=== PATIENT | male | born 1985 | race Two or more races ===

== ENCOUNTER 2017-12-29 13:40 | Emergency (ER) | payer OTHER ==
[~2017-12-29] VITALS: Ht 167.6 cm; Wt 81.6 kg
[2017-12-29 14:03] VITALS: BP 136/66
[2017-12-29] MEDS ORDERED: LIDOCAINE /MPF 1% VIAL 5 ML VIAL ONE (14:57)
[2017-12-29] MEDS ORDERED: CEFTRIAXONE 500 MG VIAL ONE (14:57)
[2017-12-29] MEDS ORDERED: AZITHROMYCIN 250 MG TABLET PO ONE (15:00)
[2017-12-29] MEDS ORDERED: CEFTRIAXONE 1 G VIAL IM ONE (15:00)
[2017-12-29] MEDS ORDERED: AZITHROMYCIN 250 MG TABLET ONE (15:15)
[2017-12-29 15:39] LABS: APPEARANCE,URINE SL CLOUDY (CLEAR); BILIRUBIN,URINE NEGATIVE (NEGATIVE); BLOOD, URINE NEGATIVE Ery/uL (NEGATIVE); COLOR,URINE YELLOW (YELLOW); KETONES,URINE NEGATIVE (NEGATIVE); LEUKOCYTE ESTERASE ,URINE 3+ (NEGATIVE); NITRITE, URINE NEGATIVE (NEGATIVE); PROTEIN,URINE NEGATIVE (NEGATIVE); UGLUCOSE NEGATIVE (NEGATIVE); UROBILINOGEN,URINE 0.2 EU/dL (0.2)
[2017-12-29 15:49] LABS: RBC,URINE 0-2 /HPF (0-2)
[2017-12-29 15:50] LABS: BACTERIA,URINE Few /HPF (None Seen); SQUAMOUS EPITHELIAL CELL,UR Rare /HPF (None Seen); WBC,URINE 21-50 /HPF (0-3)
== END 2017-12-29 15:56 | disposition home or self-care (01) ==
LOC: ER 13:43
DX: R30.0 Dysuria (principal); F10.10 Alcohol abuse, uncomplicated; F17.200 Nicotine dependence, unspecified, uncomplicated; Y90.9 Presence of alcohol in blood, level not specified
CPT/HCPCS: 81000-TC; 87086-TC; 87491; 87591; A4606; J0696; J3490; Z7610

== ENCOUNTER 2018-06-16 12:52 | Emergency (ER) | payer OTHER ==
[~2018-06-16] VITALS: Ht 160 cm; Wt 74.8 kg
--- NOTE | 2018-06-16 13:12 | NUR ---
LT WRIST PAIN X 1HR. ARM IS RED AND SLIGHTLY SWOLLEN, ONE SMALL ABRASION ON MEDIAL SIDE. SUPPORTING ARM PT IS AOX4, AMB, VSS, RR EVEN AND UNLABORED. NO ACUTE DISTRESS NOTED. DENIES SOB, DIZZINESS, WEAKNESS, N/V. SKIN WARM AND DRY. READY FOR EVAL.
[2018-06-16] MEDS ORDERED: KETOROLAC TROMETHAMINE INJ 30 MG/ML VIAL IV ONE (15:00)
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
--- NOTE | 2018-06-16 15:04 | NUR ---
CALLED [employer] NON EMERGENCY DISPATCH , THEY WILL BE SENDING A UNIT OVER.
[2018-06-16] MEDS ORDERED: KETOROLAC TROMETHAMINE 15 MG/ML VIAL ONE (15:05)
--- NOTE | 2018-06-16 15:11 | NUR ---
Patient discharged to home in stable condition. Written and verbal after care instructions given. Patient verbalizes understanding of instruction. Addendum: 06/16/18 at 1537 by OCTAVIO DISCHARGED TO WAITING ROOM TO WAIT FOR [employer]
--- NOTE | 2018-06-16 15:34 | NUR ---
[employer] UNIT [id number] RESPONDED, HOWEVER PT LEFT BEFORE THEY COULD OBTAIN THE REPORT.
[2018-06-16 15:50] VITALS: BP 111/76
== END 2018-06-16 15:01 | disposition home or self-care (01) ==
LOC: ER 12:54
DX: S50.812A Abrasion of left forearm, initial encounter (principal); R56.9 Unspecified convulsions; F10.10 Alcohol abuse, uncomplicated; F17.200 Nicotine dependence, unspecified, uncomplicated; Y90.9 Presence of alcohol in blood, level not specified; Z87.448 Personal history of other diseases of urinary system; Y08.89XA Assault by other specified means, initial encounter; Y93.89 Activity, other specified; Y92.89 Other specified places as the place of occurrence of the external cause; Y99.8 Other external cause status
CPT/HCPCS: 73110; 96372; 99283; A4606; J1885; Z7610

== ENCOUNTER 2018-06-25 18:52 | Emergency (ER) | payer MEDICAID, OTHER ==
[~2018-06-25] VITALS: Ht 162.6 cm; Wt 75.7 kg
[2018-06-25 19:08] VITALS: BP 123/75
--- NOTE | 2018-06-25 19:45 | NUR ---
HOMELESS WAIVER SIGNED AND RESOURCES PROVIDED
== END 2018-06-25 19:51 | disposition home or self-care (01) ==
LOC: ER 18:52
DX: F10.20 Alcohol dependence, uncomplicated (principal); F17.200 Nicotine dependence, unspecified, uncomplicated; R56.9 Unspecified convulsions; Y90.9 Presence of alcohol in blood, level not specified; Z71.41 Alcohol abuse counseling and surveillance of alcoholic; Z59.0 Homelessness; Z87.442 Personal history of urinary calculi

== ENCOUNTER 2018-07-29 16:53 | Emergency (ER) | payer MEDICAID ==
[~2018-07-29] VITALS: Ht 162.6 cm; Wt 77.1 kg
[2018-07-29 17:03] VITALS: BP 125/78
[2018-07-29 18:02] LABS: BASOPHILS # (AUTO) 0.1 /CMM (0.0-0.2); BASOPHILS % (AUTO) 1.1 % (0.0-2.0); EOSINOPHILS % (AUTO) 1.6 % (0.0-6.0); HEMATOCRIT 45 % (39-51); HEMOGLOBIN 14.9 g/dL (13.5-17.5); LYMPHOCYTES # (AUTO) 2.3 /CMM (0.8-4.8); LYMPHOCYTES % (AUTO) 36.4 % (20.0-44.0); MEAN CORPUSCULAR HGB CONC 34 g/dl (31.0-36.0); MEAN CORPUSCULAR VOLUME 92 fL (80-96); MONOCYTES # (AUTO) 0.4 /CMM (0.1-1.30); MONOCYTES % (AUTO) 7.2 % (2.0-12.0); NEUTROPHILS # (AUTO) 3.3 /CMM (1.8-8.9); NEUTROPHILS % (AUTO) 53.7 % (43.0-81.0); PLATELET COUNT (AUTO) 200 /CMM (150-450); RED BLOOD CELL COUNT(AUTO) 4.85 MIL/uL (4.5-6.0); WHITE BLOOD COUNT (AUTO) 6.2 K/uL (4.3-11.0)
[2018-07-29 18:11] LABS: CALCIUM, SERUM 9.1 mg/dL (8.5-10.1); POTASSIUM 4.4 mmol/L (3.5-5.1)
[2018-07-29 18:16] LABS: ALBUMIN 3.9 g/dL (3.4-5.0); BILIRUBIN,TOTAL 0.2 mg/dL (0.2-1.0); TOTAL PROTEIN, SERUM 7.4 g/dL (6.4-8.2)
[2018-07-29 18:23] LABS: APPEARANCE,URINE Clear (CLEAR); BILIRUBIN,URINE Negative (NEGATIVE); BLOOD, URINE Negative Ery/uL (NEGATIVE); COLOR,URINE Yellow (YELLOW); KETONES,URINE Trace (NEGATIVE); LEUKOCYTE ESTERASE ,URINE Negative (NEGATIVE); NITRITE, URINE Negative (NEGATIVE); PROTEIN,URINE Negative (NEGATIVE); UGLUCOSE Negative (NEGATIVE); UROBILINOGEN,URINE 0.2 EU/dL (0.2)
[2018-07-29 18:25] LABS: BACTERIA,URINE None seen /HPF (None Seen); RBC,URINE 0-2 /HPF (0-2); SQUAMOUS EPITHELIAL CELL,UR Few /HPF (None Seen); WBC,URINE 0-2 /HPF (0-3)
--- NOTE | 2018-07-29 19:05 | NUR ---
DISCHARGED BY DEGRASSE FULL SERVICE SUPERVISOR
== END 2018-07-29 19:06 | disposition home or self-care (01) ==
LOC: ER 16:55
DX: E86.0 Dehydration (principal); R56.9 Unspecified convulsions; F10.10 Alcohol abuse, uncomplicated; F17.200 Nicotine dependence, unspecified, uncomplicated; Y90.9 Presence of alcohol in blood, level not specified; Z59.0 Homelessness
CPT/HCPCS: 36415; 80053; 81001; 85025; 99283; A4606; 81000-TC